=== PATIENT | female | born 2000 | race Caucasian/White ===

== ENCOUNTER 2021-07-15 19:29 | Outpatient (CLI) | payer OTHER ==
--- NOTE | 2021-07-15 20:43 | Ultrasound Report ---
PROCEDURE: OB First Trimester w/TV INDICATIONS: SCREENING OUTSIDE/PRIOR DATING DATA: Last menstrual period (LMP): 04/26/2021. LMP-based estimated date of delivery (WILTON): 02/01/2020. First dating scan (date and location): 07/15/2021. Estimated date of delivery (WIL[facility]) from first dating scan: 01/30/2022. TECHNIQUE: Real-time scanning was performed of the fetus and maternal pelvic organs, with image documentation. Endovaginal scanning was also performed to better visualize the fetus and maternal ovaries. COMPARISON: None FINDINGS: Embryo: Single living intrauterine gestation is present with a heart rate of 167 bpm. Leonard-ru mp length is 50 mm, corresponding to a 10 week 5 day gestation. Measurement variability in dating: +/- 4 weeks by LMP, +/- 7 days by mean sac diameter (use before 6 weeks gestation if crown-rump length not able to be measured), +/- 5 days by crown-rump length (6-12 weeks gestation). Maternal organs: Right ovarian corpus luteal cyst is present. IMPRESSION: Single living intrauterine gestation. Reviewed by: Maryse Eastman MD on 07/15/2021 8:42 PM PST Approved by: Maryse Eastman MD on 07/15/2021 8:42 PM PST Station ID: [id number]
== END 2021-07-15 19:30 | disposition home or self-care (01) ==
LOC: DI 19:29
PROVIDERS: ATTEND Nurse Practitioner Obstetrics & Gynecology
DX: Z36.89 Encounter for other specified antenatal screening (principal)

== ENCOUNTER 2021-07-31 17:09 | Outpatient (CLI) | payer OTHER ==
[2021-07-31 17:43] LABS: BASOPHILS # (AUTO) 0.1 10^3/uL (0.0-0.1); BASOPHILS % (AUTO) 0.8 %; EOSINOPHILS # (AUTO) 0.1 10^3/uL (0.0-0.7); HCT - HEMATOCRIT 38.3 % (37.0-47.0); HGB - HEMOGLOBIN 13.2 g/dL (12.0-16.0); LYMPHOCYTES # (AUTO) 1.8 10^3/uL (1.5-3.5); LYMPHOCYTES % (AUTO) 16.6 %; MEAN CORPUSCULAR HEMOGLOBIN 30.7 pg (27.0-31.0); MEAN CORPUSCULAR HGB CONC 34.5 g/dL (32.0-36.0); MEAN CORPUSCULAR VOLUME 89.1 fL (81.0-99.0); MEAN PLATELET VOLUME 13.1 fL (7.9-10.8); MONOCYTES # (AUTO) 0.5 10^3/uL (0.0-1.0); MONOCYTES % (AUTO) 4.8 %; NEUTROPHILS # (AUTO) 8.1 10^3/uL (1.5-6.6); PLT - PLATELET COUNT 214 10^3/uL (130-450); RED CELL DISTRIBUTION WIDTH 13.2 % (12.0-15.0); WHITE BLOOD COUNT 10.6 x10^3/uL (4.8-10.8)
[2021-08-01 09:36] LABS: HEPATITIS B SURFACE ANTIGEN NON-REACTIVE (NON-REACTIVE); HEPATITIS C ANTIBODY NON-REACTIVE (NON-REACTIVE)
[2021-08-01 13:21] LABS: HIV AG/AB 4TH GEN NON-REACTIVE (NON-REACTIVE)
== END 2021-07-31 17:10 | disposition home or self-care (01) ==
LOC: LAB 17:09
PROVIDERS: ATTEND Nurse Practitioner Obstetrics & Gynecology
DX: Z36.89 Encounter for other specified antenatal screening (principal)
CPT/HCPCS: 36415; 85025; 86592; 86762; 86787; 86803; 86850; 86900; 86901; 87340; 87389

== ENCOUNTER 2021-09-11 16:48 | Outpatient (CLI) | payer OTHER ==
[2021-09-16 08:43] LABS: AFP MOM 0.77; AGE RISK DOWN SYNDROME 1 IN 1141; CALC'D GESTATIONAL AGE 19.7 weeks; CIGARETTE SMOKER? NOT GIVEN; DONOR AGE: EGG RETRIEVAL NOT GIVEN; DONOR EGG NO; ESTRIOL MOM 1.32; HCG MOM 1.41; HX OF NEURAL TUBE DEFECTS NO; INHIBIN A MOM 0.83; INSULIN DEPEND DIABETIC NO; MATERNAL WEIGHT 166 lbs; MSS DOWN SYNDROME RISK <1 IN 5000; MSS3 TRISOMY 18 RISK <1 IN 5000; NUMBER OF FETUSES 1; PREV PREGNANCY DOWN SYND NO; RISK FOR ONTD <1 IN 5000
== END 2021-09-11 16:49 | disposition home or self-care (01) ==
LOC: LAB 16:48
PROVIDERS: ATTEND Nurse Practitioner Obstetrics & Gynecology
DX: Z34.00 Encounter for supervision of normal first pregnancy, unspecified trimester (principal); Z36.8A Encounter for antenatal screening for other genetic defects
CPT/HCPCS: 36415; 81511

== ENCOUNTER 2021-09-13 16:18 | Outpatient (CLI) | payer OTHER ==
--- NOTE | 2021-09-13 20:47 | Ultrasound Report ---
PROCEDURE: OB Detailed Eval INDICATIONS: SUPERVISION OF NORMAL OUTSIDE/PRIOR DATING DATA: Last menstrual period (LMP): 04/26/2021. LMP-based estimated date of delivery (WIL[facility]): 01/31/2022. First dating scan (date and location): 07/15/2021. Estimated date of delivery (WIL[facility]) from first dating scan: 01/30/2022. The below data below was generated using the ultrasound WILTON of 01/30/2022 TECHNIQUE: Real-time scanning was performed of the fetus, with image documentation and biometric measurements. Endovaginal scanning: Not performed. COMPARISON: None. FINDINGS: General: A single living intrauterine gestation is present. Presentation: Stable Placenta: Placental position is posterior, without previa. Amniotic fluid index: 15.3 cm, normal for gestational age. Deepest single vertical fluid pocket: 4.4 cm. heart rate: 157 beats per minute. Maternal cervical canal: 3.2 cm long; normal length is 2.5 cm or more. biometrics: Biparietal diameter: 4.5 cm, 19 weeks 5 days Head circumference: 17.3 cm, 19 weeks 6 days Abdominal circumference: 15.4 cm, 20 weeks 4 days Femur length: 3.12 cm, 19 weeks 5 days Estimated gestational age from initial scan: 20 weeks 1 day Composite gestational age from present scan: 20 weeks 0 days Estimated weight and percentile: 334 g, 44th percentile Measurement variability in biometric dating: +/- 10 days from 12-20 weeks gestation, +/- 2 weeks from 20-30 weeks gestation, +/- 3 weeks at 30 weeks gestation or later. Anatomic survey: Neuro: Ventricles are normal at less than 10 mm. Cisterna magna is normal at 3-11 mm. Cerebellum i s normal in size and morphology. Nuchal skin fold: Normal at less than 6 mm between 14 and 20 weeks gestational age. Face: Nose and lips, facial profile are normal. Spine: No evidence for spina bifida. Heart: 4-chambered heart is present, with normal ventricular outflow tracts. Diaphragm: Diaphragm is intact. Stomach: Left-sided stomach is present. Kidneys: No hydronephrosis. Normal is less than 5 mm in 2nd trimester, less than 7 mm in 3rd trimester. Cord: 3 vessel cord has orthotopic insertion. Bladder: Normal in size. Extremities: All 4 extremities are visualized. IMPRESSION: 1.Single live intrauterine with appropriate interval growth. 2.Estimated weight is 334 g, 44th percentile. 3. anatomic survey within normal limits. Reviewed by: Lorenzo Campos MD on 09/13/2021 8:45 PM PST Approved by: Lorenzo Campos MD on 09/13/2021 8:45 PM PST Station ID: [id number]
== END 2021-09-13 16:19 | disposition home or self-care (01) ==
LOC: DI 16:18
PROVIDERS: ATTEND Nurse Practitioner Obstetrics & Gynecology
DX: Z34.02 Encounter for supervision of normal first pregnancy, second trimester (principal); Z36.8A Encounter for antenatal screening for other genetic defects

== ENCOUNTER 2021-11-06 02:45 | Outpatient (CLI) | payer OTHER ==
[2021-11-06 03:34] VITALS: BP 128/63
--- NOTE | 2021-11-15 20:07 | PROVIDER PROGRESS NOTE ---
- HPI Chief Complaint: GI symptoms Current : Current EDU 01/30/22 Gestation 27 Weeks and 6 Days 1 Para 0 Vital Signs Temperature 36.7 C 11/06/21 03:10 Heart Rate 111 H 11/06/21 03:10 Respiratory Rate 20 11/06/21 03:10 Blood Pressure 128/63 11/06/21 03:10 Temperature 36.7 C 11/06/21 04:00 Heart Rate 110 H 11/06/21 04:00 Respiratory Rate 18 11/06/21 04:00 Blood Pressure 128/63 11/06/21 04:00 O2 Saturation - Procedures OB Procedure Performed: NST Diagnosis/Indication for NST: Other NST Procedure: NST Procedure Start Date 11/06/21 Start Time 03:18 Stop Time 03:55 Vibroacoustic Stimulation Used No Patient States Movement Yes: less than usual since illness began yesterday - Plan Plan: S: La presents to [facility] with c/o nausea and vomiting. She state she became nervous about being sick while and after vomiting several times. She denies dizziness or lightheadedness. She denies vaginal bleeding or leakage of fluid. She denies contractions. She reports +FM but she feels like the frequency of movements have decreased since she started vomiting. She states she began to feel better on the drive over but her was worried as he has recently had a stomach virus. O: NST performed 11/06/2021 NST read 11/07/2021 NST reactive. FHR baseline 150s, moderate variability, + accels, no decels No contractions appreciated via tocometry Vital signs WNL. A: 21yo @ 27.1wks gestation Nausea and vomiting P: Pt feels better after reactive NST. Reports decreased nausea. Encouraged increased fluid intake and addition of electrolytes and rest. Pt released home with precautions. Pt verbalized understanding and agrees to above plan. FINAL DIAGNOSIS: Nausea in
== END 2021-11-06 04:05 | disposition home or self-care (01) ==
LOC: WFO 02:45 → FBP 02:48 → WFO 04:05
PROVIDERS: ATTEND Naturopath
DX: O21.9 Vomiting of pregnancy, unspecified (principal); Z3A.27 27 weeks gestation of pregnancy
CPT/HCPCS: 59025; 99214

== ENCOUNTER 2021-11-11 16:30 | Outpatient (CLI) | payer OTHER ==
[2021-11-11 20:46] LABS: HCT - HEMATOCRIT 36.5 % (37.0-47.0); MEAN CORPUSCULAR HGB CONC 32.9 g/dL (32.0-36.0); MEAN CORPUSCULAR VOLUME 88.2 fL (81.0-99.0); MEAN PLATELET VOLUME 13.7 fL (7.9-10.8); RED BLOOD COUNT 4.14 10^6/uL (4.20-5.40); WHITE BLOOD COUNT 9.8 x10^3/uL (4.8-10.8)
== END 2021-11-11 16:31 | disposition home or self-care (01) ==
LOC: LAB.N 16:30
PROVIDERS: ATTEND Nurse Practitioner Obstetrics & Gynecology
DX: Z36.9 Encounter for antenatal screening, unspecified (principal)
CPT/HCPCS: 36415; 82950; 85027

== ENCOUNTER 2022-02-07 01:18 | Inpatient (IN) | payer OTHER ==
[2022-02-07] MEDS ORDERED: TRANEXAMIC ACID IN NACL 1,000 MG/100 ML BAG IV PRN (02:43)
[2022-02-07] MEDS ORDERED: LABETALOL 20 MG/4 ML SYRINGE IVP PRN ×3 (02:43)
[2022-02-07] MEDS ORDERED: hydrALAZINE INJ 20 MG/ML VIAL IVP PRN ×2 (02:43)
[2022-02-07] MEDS ORDERED: LIDOCAINE-MPF 1% 30 ML VIAL ID PRN (02:43)
[2022-02-07] MEDS ORDERED: CARBOPROST TROMETHAMINE 250 MCG/ML AMP IM PRN (02:43)
[2022-02-07] MEDS ORDERED: OXYTOCIN/SODIUM CHLORIDE 500 ML IV PRN ×2 (02:43→23:37)
[2022-02-07] MEDS ORDERED: miSOPROStoL 200 MCG TABLET PR PRN (02:43)
[2022-02-07] MEDS ORDERED: miSOPROStoL 200 MCG TABLET BC PRN (02:43)
[2022-02-07] MEDS ORDERED: fentaNYL 100 MCG/2 ML VIAL IVP PRN (02:43)
[2022-02-07] MEDS ORDERED: NIFEdipine 10 MG CAPSULE PO PRN (02:43)
[2022-02-07] MEDS ORDERED: OXYTOCIN 10 UNIT/ML VIAL IM PRN (02:43)
[2022-02-07] MEDS ORDERED: METHYLERGONOVINE 0.2 MG/ML VIAL IM PRN (02:43)
[2022-02-07] MEDS ORDERED: TERBUTALINE 1 MG/ML VIAL SUBQ PRN (02:43)
[2022-02-07] MEDS ORDERED: SODIUM CHLORIDE FLUSH 0.9% 10 ML SYRINGE IVP PRN ×2 (02:43→23:37)
--- NOTE | 2022-02-07 02:48 | HISTORY & PHYSICAL EXAMINATION ---
Admit History - Visit Reason Visit Reason: Contractions - : 1 Parity: 0 Premature: 0 Ectopic: 0 : 0 Care: positive: [facility] Risk/History: positive: None Complications This : positive: None Smoking Status: Never smoker - Mother's Labs Mother's Blood Type: positive: O Mother's RH: positive: Positive GBS: positive: Group B Step Negative Rubella Status: positive: Equivocal Meds/Allgy - Allergies Allergies/Adverse Reactions: Allergies Allergy/AdvReac Type Severity Reaction Status Date / Time No Known Allergies Allergy Unknown Verified 02/07/22 01:36 Review of Systems - Constitutional Constitutional: denies: Fatigue, Fever, Chills, Malaise - Eyes Eyes: denies: Blurred vision, Spots in vision, Dipolpia - Cardiovascular Cariovascular: denies: Irregular heart rate, Palpitations, Chest pain, Edema - Respiratory Respiratory: denies: Cough, Wheezing, SOB at rest - Gastrointestinal Gastrointestinal: denies: Constipation, Diarrhea, Nausea, Vomiting - Integumentary Integumentary: denies: Rash, Pruritis - Neurological Neurological: denies: Headache Physical - Abdominal Exam Vital Signs: Temp Pulse Resp BP Pulse Ox 37.0 C 96 18 130/72 02/07/22 01:30 02/07/22 01:30 02/07/22 01:30 02/07/22 01:30 Contraction Intensity: positive: Moderate to strong Uterine Resting Tone: positive: Soft - Monitoring Heart Rate Baseline: 140s Strip Review: positive: Category I - Presentation Presentation: positive: Vertex - Vaginal Exam Membranes: positive: Membranes intact Dilation (in cm): 5 Effacement (%): 90 - Speculum Exam Speculum Exam Performed: positive: No Plan for Labor - Plan For Labor I expect patient to be DC'd or transferred within 96 hours.: Yes Plan for Labor: HPI: This 21yo @ 41wks gestation by LMP c/w 10.5wks gestation who presents today with c/o contractions. She has experienced intermittent contractions for the past 48 hours however this evening at approximately 1800 she noticed they had increased in frequency and intensity. She denies vaginal bleeding or leakage of fluid. She reports +FM. Upon arrival she was noted to be 5/60/-2, midposition, soft and vertex with intact membranes. She has been a patient of [facility] since her transfer of care from [facility] at 24wks gestation. She has received consistent care through the duration of her which has remained uncomplicated. She is supported by her and her mom today. She will be admitted to [facility] for expectant management. Dating criteria: LMP: 04/26/2021 Initial U/S @ 10.5wks gestation c/w LMP dating Serial exams- agree OB Hx: G1: Current Medications: PNV Allergies: NKDA PMHx: Migraines Surgical Hx: None Social Hx: Never smoker. No ETOH or IVDA. Han is [employer]. Family Hx: Diabetes - MGM course: LMP 04/26/2021 Initial U/S @ 10.5wks gestation c/w LMP dating (WIL[place] by LMP 01/30/2022) O POS/ Rubella - equivocal - MMR VZV: non-immune Genetic screening - Quad screen negative FAS: WNL. Posterior placenta, no previa. 3VC. Size c/w dating. Glucola 93 Influenza vaccine: 06/27/2021 Tdap: 11/12/2021 GBS @ 37wks - NEG HSV: Denies in self and partner Physical Exam: Normocephalic, atraumatic Heart RRR w/o M/G/R Lungs CTAB Abdomen gravid, soft, nontender FHR baseline 150s, moderate variability, + accels, no decels Contractions palpate moderate every 2-3 minutes with soft resting tone SVE 5/60/-2, midposition and vertex. Membranes intact. Bilateral LE's trace edema. Mood is good. Assessment: 21yo @41.0wks gestation by LMP c/w 10.5wk U/S Active labor GBS NEGATIVE FHR Category I Plan: Admit to [facility] for expectant management. Intermittent monitoring. Encouraged ambulation and position changes. Jacuzzi PRN. Nitrous oxide PRN. Epidural per maternal request. Anticipate .
[2022-02-07 03:21] LABS: BASOPHILS # (AUTO) 0.1 10^3/uL (0.0-0.1); BASOPHILS % (AUTO) 0.5 %; EOSINOPHILS # (AUTO) 0.1 10^3/uL (0.0-0.7); EOSINOPHILS % (AUTO) 0.8 %; HCT - HEMATOCRIT 37.9 % (37.0-47.0); HGB - HEMOGLOBIN 12.2 g/dL (12.0-16.0); LYMPHOCYTES # (AUTO) 1.7 10^3/uL (1.5-3.5); LYMPHOCYTES % (AUTO) 14.7 %; MEAN CORPUSCULAR HEMOGLOBIN 26.9 pg (27.0-31.0); MEAN CORPUSCULAR HGB CONC 32.2 g/dL (32.0-36.0); MEAN CORPUSCULAR VOLUME 83.5 fL (81.0-99.0); MONOCYTES % (AUTO) 8.7 %; NEUTROPHILS # (AUTO) 8.6 10^3/uL (1.5-6.6); NEUTROPHILS % (AUTO) 74.8 %; NRBC ABSOLUTE COUNT (AUTO) 0.02 x10^3/uL; NUCLEATED RED BLOOD CELLS AUTO 0.2 /100WBC; PLT - PLATELET COUNT 162 10^3/uL (130-450); RED BLOOD COUNT 4.54 10^6/uL (4.20-5.40); RED CELL DISTRIBUTION WIDTH 16.7 % (12.0-15.0); WHITE BLOOD COUNT 11.5 x10^3/uL (4.8-10.8)
[2022-02-07] MEDS ORDERED: lidocaine 1% 20 ML MDV ID PRN (08:17)
--- NOTE | 2022-02-07 09:07 | PROVIDER PROGRESS NOTE ---
Labor Progress Note - Uterine Monitoring Uterine Monitoring Mode: positive: External toco Contraction Frequency (min/apart): 2-5 Contraction Intensity: positive: Strong - Monitoring Heart Rate Baseline: 130 Heart Rate Variability: positive: Moderate (6-25 bmp) Accelerations: positive: Present, 15x15 Decelerations: positive: None Strip Review: positive: Category I - Vaginal Exam Dilation (in cm): 7 Effacement (%): 100 Station: -2 Cervical Position: Midposition - Labor Progress Note Labor Progress Note/Additional Text: S: Breathing through contractions and coping well. Her mother and are supportive at the bedside. She states she is feeling tired but she has been able to close her eyes between contractions and get a tiny bit of rest. She states she feels she is doing well and denies questions or concerns at this time. O: FHR baseline 130s, moderate variability, + accels, no decels Contractions palpate strong every 2-5 minutes with soft resting tone SVE 7/100/-2, midposition, stretchy. Vertex. Bulging BOW A: 21yo @ 41.1wks gestation by LMP c/w 10wk U/S Postdates Active labor GBS neg FHR Category I P: Continue expectant management Intermittent monitoring Nitrous oxide PRN. Anticipate
--- NOTE | 2022-02-07 11:14 | PROVIDER PROGRESS NOTE ---
Labor Progress Note - Uterine Monitoring Uterine Monitoring Mode: positive: External toco Contraction Frequency (min/apart): 2-8 Contraction Intensity: positive: Strong Uterine Resting Tone: positive: Soft - Monitoring Monitor Mode: positive: External ultrasound Heart Rate Baseline: 125 Heart Rate Variability: positive: Moderate (6-25 bmp) Accelerations: positive: Present, 15x15 Decelerations: positive: None Strip Review: positive: Category I - Vaginal Exam Dilation (in cm): 8-9 Effacement (%): 100 Station: -1 Cervical Position: Anterior - Labor Progress Note Labor Progress Note/Additional Text: S: Breathing through contractions and coping very well. She is not feeling pressure at this time. Having some back pressure with contractions. Currently right side lying with peanut ball. Her and mom are supportive at the bedside. O: FHR baseline 130s, moderate variability, +accels, occasional early decelerations Contractions palpate firm every 2-8 minutes with soft resting tone SVE 8-9/100/-1, anterior. Vertex. Intact membranes. A: 21yo @ 41.1wks gestation by LMP Active labor GBS neg FHR Category I P: Continue expectant management Encouraged position changes in bed on peanut ball. Nitrous oxide PRN. Epidural per maternal request. Anticipate
--- NOTE | 2022-02-07 13:17 | PROVIDER PROGRESS NOTE ---
Labor Progress Note - Uterine Monitoring Uterine Monitoring Mode: positive: External toco Contraction Frequency (min/apart): 2-6 Contraction Intensity: positive: Strong Uterine Resting Tone: positive: Soft - Monitoring Monitor Mode: positive: External ultrasound Heart Rate Baseline: 130 Heart Rate Variability: positive: Moderate (6-25 bmp) Accelerations: positive: Present, 15x15 Decelerations: positive: Early Strip Review: positive: Category I - Vaginal Exam Dilation (in cm): 8 Effacement (%): 100 Station: -1 Cervical Position: Posterior - Labor Progress Note Labor Progress Note/Additional Text: S: Breathing through contractions. She is feeling very tired but overall is coping very well. and mom are supportive at the bedside. O: FHR baseline 130s, moderate variability, + accels, no decels Contractions palpate firm every 2-6 minutes with soft resting tone SVE 8/100/-1, anterior. Vertex. AROM @ 1306 was noted to be a small amount of clear fluid A: 21yo @ 41.1wks gestation by LMP Active labor Postdates GBS neg FHR Category I P: Continue expectant management. Encouraged ambulation and position changes. Anticipate .
[2022-02-07] MEDS ORDERED: LACTATED RINGERS 1,000 ML ONE (18:10)
--- NOTE | 2022-02-07 20:35 | PROVIDER PROGRESS NOTE ---
Labor Progress Note - Uterine Monitoring Uterine Monitoring Mode: positive: External toco : 2-3 Contraction Intensity: positive: Strong Uterine Resting Tone: positive: Soft - Monitoring Monitor Mode: positive: External ultrasound Heart Rate Baseline: 145 Heart Rate Variability: positive: Moderate (6-25 bmp) Accelerations: positive: Present, 15x15 Decelerations: positive: Early, Late, Variable, Intermittent (<50% x20 min) Strip Review: positive: Category II - Vaginal Exam Dilation (in cm): 10 Effacement (%): 100 Station: 1 - Labor Progress Note Labor Progress Note/Additional Text: S: Patient pushing in hands and knees. Continues to cope well with her contractions. Her mom and are supportive at the bedside. O: SVE c/c/+1 with moderate amount of caput noted. Pushing effort adequate and she continues to make slow progress FHR baseline 145, moderate variability, + accels. Occasional late decelerations, occasional early decelerations and occasional variable decelerations. Overall heart tones are reassuring. Moderate meconium noted now and was not present previously A: 21yo @ 41.1wks gestation by LMP Postdates gestation Active labor FHR Category II GBS neg P: Continue expectant management. Encouraged position changes in bed as tolerated. Continuous monitoring. Anticipate
[2022-02-07] MEDS ORDERED: diphenhydrAMINE INJ 50 MG/ML VIAL ONE (21:07)
--- NOTE | 2022-02-07 21:58 | CONSULTATION NOTE ---
Surgery Consult - Admit Date Hospital Admission Date: 02/07/22 - Consult Date Consult Date: 02/07/22 Requesting Provider: CHIKA Mckeon - Chief Complaint Chief Complaint: Failure to descend - Home Meds/Allergies Allergies/Adverse Reactions: Allergies Allergy/AdvReac Type Severity Reaction Status Date / Time No Known Allergies Allergy Unknown Verified 02/07/22 01:36 - Vital Signs Vital Signs: Last Vital Signs Temp 97.9 F 02/07/22 08:19 Pulse 80 02/07/22 08:19 Resp 18 02/07/22 08:19 BP 131/74 H 02/07/22 08:19 Pulse Ox 97 02/07/22 08:19 Intake & Output: Intake & Output 02/04/22 02/05/22 02/06/22 02/07/22 23:59 23:59 23:59 23:59 Output Total 1 Balance -1 - Lab Results Result Diagrams: 02/07/22 02:30 - Consultation Note Consultation Note: Patient is a 21-year-old G1, P0 at 41 weeks gestation by LMP consistent with 10- week ultrasound. She has made slow progression throughout the day and became complete and has been pushing for over 2 hours but fetus remains at 0 or +1 station. Too high for a vacuum to be performed safely. I was consulted to assess the situation OB history G1, P0 1. Current Past medical history Migraines Past surgical history Denies Family history Maternal grandmother: Diabetes Social history Denies tobacco, alcohol, drugs Physical Constitutional: alert, oriented, appears tired, face swollen, pushing with contractions Cardiovascular: RRR. Respiratory: no respiratory distress. Abdomen: Gravid, nontender Psych: affect and mood appropriate, normal interaction, good eye contact. SVE: 10/100/0 FHT: 180 bpm baseline, minimal variability with periods of moderate, variable decelerations with pushing, category 2. Mounds: 1 to 2 minutes Assessment and plan 21-year-old at 41 weeks gestation with failure to descend 1. Failure to descend: -Too high for vacuum assisted vaginal delivery. - section was recommended. Risks, benefits and alternatives were discussed including but not limited to infection, bleeding that may require blood products or hysterectomy for life saving measures, injury to surrounding organs including but not limited to bowel, bladder, ureters, tubes and ovaries and/or the baby. Should injury occur it could require longer/additional surgery to repair. The patient stated understanding and desired to proceed. All questions were answered posed by patient. She agrees to proceed with section. -Plan for primary low-transverse section. 2 g Ancef, 500 mg azithromycin 2. 41 weeks gestation 3. tachycardia 4. Category 2 tracing
[2022-02-07] MEDS ORDERED: CEFAZOLIN SODIUM IN 0.9 % NACL 2 GM/50 ML BAG IV SCH (22:00)
[2022-02-07] MEDS ORDERED: AZITHROMYCIN INJ 500 MG in SODIUM CHLORIDE 0.9% 250 ML IV SCH (22:00)
[2022-02-07] MEDS ORDERED: diphenhydrAMINE INJ 50 MG/ML VIAL IVP ONE (22:00)
--- NOTE | 2022-02-07 22:00 | PROVIDER PROGRESS NOTE ---
Labor Progress Note - Labor Progress Note Labor Progress Note/Additional Text: S: Patient has experienced facial swelling secondary to significant pushing effort. 50mg Benadryl was administered with little improvement. Patient pushing effort beginning to decrease secondary to maternal exhaustion. and mother supportive at the bedside. O: FHR baseline 170s, minimal variability SVE c/c/+1 Moderate meconium A: 21yo @ 41.1wks gestation by LMP Postdates FHR Category II GBS neg Active labor P: Secondary to maternal exhaustion, malposition, tachycardia, and arrest of descent, correction warden physicial presence requested at the bedside to evaluate for the appropriateness of a vacuum assisted vaginal delivery vs delivery. Dr. Sandhu, correction warden physician, present at the bedside and care handed to physician now.
[2022-02-07] MEDS ORDERED: ceFAZolin 1 GM VIAL ONE (22:13)
[2022-02-07] MEDS ORDERED: fentaNYL 100 MCG/2 ML VIAL ONE (22:23)
[2022-02-07] MEDS ORDERED: miSOPROStoL 200 MCG TABLET ONE (22:39)
[2022-02-07] MEDS ORDERED: CARBOPROST TROMETHAMINE 250 MCG/ML AMP IM ONE (22:40)
[2022-02-07] MEDS ORDERED: METHYLERGONOVINE 0.2 MG/ML VIAL ONE (22:42)
[2022-02-07] MEDS: LACTATED RINGERS 1,000 ML IV SCH (23:00)
[2022-02-07] MEDS ORDERED: SIMETHICONE CHEW 80 MG TABLET PO PRN (23:37)
[2022-02-07] MEDS ORDERED: oxyCODONE 5 MG TABLET PO PRN (23:37)
[2022-02-07] MEDS ORDERED: ONDANSETRON ODT 4 MG TABLET TL PRN (23:37)
--- NOTE | 2022-02-07 23:42 | OPERATIVE REPORT ---
Operative Report - General Admit Date: 02/07/22 Procedure Date: 02/07/22 Planned Procedure: Primary low transverse section Pre-Op Diagnosis: 41 weeks gestation, failure to descend, category 2 tracing Procedure Performed: Low transverse section Post Op Diagnosis: 41 weeks gestation, failure to descend, category 2 tracing - Procedure Note Primary Surgeon: Paul Sandhu MD Secondary Surgeon: CHIKA Mckeon Anesthesia Provider: TARSHA Connell Anesthesia Technique: Spinal Pathology: None IV Fluids (mL): 1,100 Estimated Blood Loss (mL): 800 Urine Output (mL): 75 Complications: None - Other Other Information/Narrative: Patient was a 21-year-old at 41 weeks gestation who presented for labor, she progressed to complete and pushed for several hours, but did not descend past 0 to +1 station. Between contractions, head would rise into the pelvis. As she was getting exhausted and stopped making progress as well as a category 2 tracing with tachycardia, we discussed section. section was recommended. Risks, benefits and alternatives were di scussed including but not limited to infection, bleeding that may require blood products or hysterectomy for life saving measures, injury to surrounding organs including but not limited to bowel, bladder, ureters, tubes and ovaries and/or the baby. Should injury occur it could require longer/additional surgery to repair. The patient stated understanding and desired to proceed. All questions were answered posed by patient. Prior to being taken to the OR, two grams of cefazolin IV and 500 mg azithromycin were administered. The patient was taken to the operating room where regional anesthesia was found to be adequate. She was then prepared and draped in the usual sterile fashion in the dorsal supine position with a leftward tilt displacing the uterus. Orozco was draining to gravity. SCDs were on bilateral lower extremities. A pfannenstiel skin incision was then made with the scalpel and carried through to the underlying layer of fascia. The fascia was incised in the midline and the incision extended laterally with the Carolina scissors. The superior aspect of the facial incision was then grasped with the Parker clamps, elevated and the underlying rectus muscles dissected off sharply. Attention was then turned to the inferior aspect of this incision which in a similar fashion was grasped, elevated with the Parker clamps and the rectus muscle dissected off sharply. The rectus muscles were in the midline. The peritoneum identified, grasped with the pick-ups and entered sharply with the Metzenbaum scissors. The peritoneal incision was then extended superiorly and inferiorly with good visualization of the bladder. The bladder blade was inserted. The vesicouterine peritoneum was identified, grasped with the pick-ups, and entered sharply with Metzenbaum scissors. This incision was then extended laterally and the bladder flap created digitally. The bladder blade was reinserted. The lower uterine segment was identified and incised in a transverse fashion with the scalpel. The uterine incision was then extended bluntly laterally. Artificial rupture of membranes demonstrated moderate meconium stained fluid. The bladder blade was removed. The fetus was in a cephalic presentation. The infants head delivered atraumatically. The anterior shoulders were delivered followed by the posterior shoulders then the remainder of the body. The infants mouth and nose were bulb suctioned. The umbilical cord was clamped times two and cut. The infant was handed to the pediatric team. Cord blood gases were obtained. The placenta was removed with gentle traction. 20 units of oxytocin were added to IVF and allowed to run freely. The uterus was exteriorized and cleared of all clots and debris. The uterine incision was inspected and found to be without any extensions and was repaired with 0 Vicryl in a running, locked fashion. A second imbricating layer was performed. Upon inspection, the repaired hysterotomy was found to be hemostatic. The uterus was firm and returned to the abdomen. The gutters were cleared of all clots and debris. The fascia was reapproximated with 0 Vicryl in a running fashion. The subcutaneous tissue was closed with 2-0 Vicryl. The skin was closed in a subcuticular fashion with 4-0 Monocryl. The patient tolerated the procedure well. Sponge, lap and needle counts were correct times three. The patient was taken to the recovery room in stable condition. weight is pending at this time. I appreciate the assistance of CHIKA Mckeon during this procedure, and her assistance in retraction, visualization, dissection, and overall assistance during the case were instrumental to the patient's wellbeing.
[2022-02-07] MEDS ORDERED: KETOROLAC 30 MG/ML VIAL IVP SCH (23:45)
--- NOTE | 2022-02-08 00:26 | ANESTHESIA ---
Pre-Anesthesia VS, & Labs - Diagnosis failure to descend - Procedure urgent C/S Vital Signs: Temp Pulse Resp BP Pulse Ox 36.6 C 80 18 131/74 H 97 02/07/22 08:19 02/07/22 08:19 02/07/22 08:19 02/07/22 08:19 02/07/22 08:19 Height: 5 ft 1 in Weight (kg): 87.543 kg Body Mass Index: 36.4 BMI Classification: Obese - NPO Other (liquids <8Hrs) - Is Patient ?: Yes - Lab Results Current Lab Results: Laboratory Tests 02/07/22 02:30: WBC 11.5 H, RBC 4.54, Hgb 12.2, Hct 37.9, MCV 83.5, MCH 26.9 L, MCHC 32.2, RDW 16.7 H, Plt Count 162, Neut # (Auto) 8.6 H, Lymph # (Auto) 1.7, [place] # (Auto) 1.0, Eos # (Auto) 0.1, Baso # (Auto) 0.1, Absolute Nucleated RBC 0.02, Nucleated RBC % 0.2 02/07/22 02:30: Blood Type O POSITIVE, Antibody Screen NEGATIVE Fish Bones: 02/07/22 02:30 Home Medications and Allergies Active Medications Acetaminophen (Acetaminophen 500 Mg Tablet) 1,000 mg PO Q8H LANA Carboprost Tromethamine (Carboprost Tromethamine 250 Mcg/Ml Amp) 250 mcg IM .ONCE PRN PRN Reason: Hemorrhage Docusate Sodium (Docusate Sodium 100 Mg Capsule) 100 mg PO BID LANA Fentanyl (Fentanyl 100 Mcg/2 Ml Vial) 50 mcg IVP Q1H PRN PRN Reason: Severe Pain (score 7-10) Hydralazine HCl (Hydralazine Inj 20 Mg/Ml Vial) 5 - 10 mg IVP Q20M PRN; Protocol PRN Reason: SBP> or= 160 OR DBP> or= 110 Hydralazine HCl (Hydralazine Inj 20 Mg/Ml Vial) 10 mg IVP .ONCE PRN; Protocol PRN Reason: SBP> or= 160 OR DBP> or= 110 Oxytocin/Sodium Chloride (Pitocin/Sodium Chloride) 500 mls @ 999 mls/hr IV PRN PRN; Protocol PRN Reason: POST- HEMORR PREVENTION Tranexamic Acid (Tranexamic 1,000 Mg/100ml-Nacl) 1,000 mg in 100 mls @ 600 mls/hr IV Q30M PRN PRN Reason: EBL >1200mL and within 3hr Cefazolin/Sodium Chloride (Ancef 2 Grams/50ml) 2 gm in 50 mls @ 100 mls/hr IV ONCE LANA Stop: 02/08/22 21:59 Azithromycin 500 mg/ Sodium (Chloride) 250 mls @ 250 mls/hr IV ONCE LANA Stop: 02/08/22 21:59 Lactated Ringer's (Lr) 1,000 mls @ 100 mls/hr IV .Q10H LANA Oxytocin/Sodium Chloride (Pitocin/Sodium Chloride) 500 mls @ 999 mls/hr IV PRN PRN; Protocol PRN Reason: POST- HEMORR PREVENTION Ibuprofen (Ibuprofen 600 Mg Tablet) 600 mg PO Q6H LANA Ketorolac Tromethamine (Ketorolac 30 Mg/Ml Vial) 30 mg IVP Q6H LANA Stop: 02/08/22 17:46 Labetalol HCl (Labetalol 20 Mg/4 Ml Syringe) 20 - 80 mg IVP Q10M PRN; Protocol PRN Reason: SBP> or= 160 OR DBP> or= 110 Labetalol HCl (Labetalol 20 Mg/4 Ml Syringe) 20 mg IVP .ONCE PRN; Protocol PRN Reason: SBP> or= 160 OR DBP> or= 110 Labetalol HCl (Labetalol 20 Mg/4 Ml Syringe) 20 - 40 mg IVP Q10M PRN; Protocol PRN Reason: SBP> or= 160 OR DBP> or= 110 Lidocaine HCl (Lidocaine 1% 20 Ml Mdv) 20 ml ID .ONCE PRN PRN Reason: PERINEAL REPAIR Methylergonovine Maleate (Methylergonovine 0.2 Mg/Ml Vial) 0.2 mg IM .ONCE PRN PRN Reason: Hemorrhage Misoprostol (Misoprostol 200 Mcg Tablet) 600 mcg BC .ONCE PRN PRN Reason: Hemorrhage Misoprostol (Misoprostol 200 Mcg Tablet) 800 mcg OR .ONCE PRN PRN Reason: Hemorrhage Nifedipine (Nifedipine 10 Mg Capsule) 10 - 20 mg PO Q20M PRN; Protocol PRN Reason: SBP> or= 160 OR DBP> or= 110 Ondansetron HCl (Ondansetron Odt 4 Mg Tablet) 4 mg TL Q4H PRN PRN Reason: Nausea / Vomiting Oxycodone HCl (Oxycodone 5 Mg Tablet) 5 mg PO Q4HR PRN PRN Reason: PAIN Oxytocin (Oxytocin 10 Unit/Ml Vial) 10 unit IM .ONCE PRN PRN Reason: Step One if no IV access. Simethicone (Simethicone Chew 80 Mg Tablet) 80 mg PO TID PRN PRN Reason: Gas Sodium Chloride (Sodium Chloride Flush 0.9% 10 Ml Syringe) 10 ml IVP PRN PRN PRN Reason: NEEDED PER PROVIDER ORDERS Sodium Chloride (Sodium Chloride Flush 0.9% 10 Ml Syringe) 10 ml IVP Q8H LANA Sodium Chloride (Sodium Chloride Flush 0.9% 10 Ml Syringe) 10 ml IVP 0100,0900,1700 LANA Sodium Chloride (Sodium Chloride Flush 0.9% 10 Ml Syringe) 10 ml IVP PRN PRN PRN Reason: NEEDED PER PROVIDER ORDERS Terbutaline Sulfate (Terbutaline 1 Mg/Ml Vial) 0.25 mg SUBQ .ONCE PRN PRN Reason: Tachystole Allergies/Adverse Reactions: Allergies Allergy/AdvReac Type Severity Reaction Status Date / Time No Known Allergies Allergy Unknown Verified 02/07/22 01:36 Anes History & Medical History - Anesthetic History Anesthesia Complications: reports: No previous complications Family history of Anesthesia Complications: Denies Family history of Malignant Hyperthermia: Denies - Medical History Cardiovascular: reports: None Pulmonary: reports: None Neuro: reports: Migraines Smoking Status: Never smoker - Obstetrical History : 1 Parity: 0 Events: reports: None Complications: reports: None Exam General: Oriented x3, Cooperative, Mild distress, Other (pt exhausted, minimal verbal communication secondary to exhaustion) Dental: WNL (large amount of facial swelling. Pt cannot open eyes due to swelling.) Mouth Openin Fingerbreadth Neck Mobility: Normal Mallampati classification: III Thyromental Distance: less than 4 cm Respiratory: Lungs clear Cardiovascular: Regular rate Plan Anesthesia Type: Spinal Consent for Procedure(s) Verified and Reviewed: Yes Code Status: Attempt Resuscitation ASA classification: 2-Mild systemic disease Is this case an emergency?: Yes
[2022-02-08] MEDS ORDERED: SODIUM CHLORIDE FLUSH 0.9% 10 ML SYRINGE IVP SCH (01:00)
[2022-02-08] MEDS: ACETAMINOPHEN 500 MG TABLET PO SCH ×3 (01:29→17:06)
--- NOTE | 2022-02-08 04:32 | ANESTHESIA POST OP EVALUATION ---
Anesthesia Post Eval - Post Anesthesia Eval Vitals: Last Vital Signs Temp 36.6 C 02/07/22 08:19 Pulse 80 02/07/22 08:19 Resp 18 02/07/22 08:19 BP 131/74 H 02/07/22 08:19 Pulse Ox 97 02/07/22 08:19 CV Function Including HR & BP: Stable Pain Control: Satisfactory Nausea & Vomiting: Negative Mental Status: Baseline Respiratory Status: Airway Patent Hydration Status: Satisfactory Anesthesia Complications: None
[2022-02-08] MEDS: KETOROLAC 30 MG/ML VIAL IVP SCH ×3 (05:45→19:39)
[2022-02-08 06:40] LABS: BASOPHILS % (AUTO) 0.2 %; EOSINOPHILS % (AUTO) 0.9 %; HCT - HEMATOCRIT 30.9 % (37.0-47.0); HGB - HEMOGLOBIN 10.3 g/dL (12.0-16.0); LYMPHOCYTES % (AUTO) 6.2 %; MEAN CORPUSCULAR HEMOGLOBIN 27.1 pg (27.0-31.0); MEAN CORPUSCULAR HGB CONC 33.3 g/dL (32.0-36.0); MEAN CORPUSCULAR VOLUME 81.3 fL (81.0-99.0); MONOCYTES % (AUTO) 9.5 %; NEUTROPHILS % (AUTO) 82.7 %; PLT - PLATELET COUNT 149 10^3/uL (130-450); RED CELL DISTRIBUTION WIDTH 16.7 % (12.0-15.0); WHITE BLOOD COUNT 18.7 x10^3/uL (4.8-10.8)
[2022-02-08 06:42] LABS: ABNORMAL LYMPHS % (MANUAL) 0 %
--- NOTE | 2022-02-08 06:43 | PROVIDER PROGRESS NOTE ---
Subjective - Prog Note Date Prog Note Date: 02/08/22 - Subjective Subjective: Subjective Patient reports she is doing well. Lochia appropriate. Denies heavy bleeding. Ambulating. Pelvic and abdominal pain well-controlled. Tolerating oral intake. Diet: Regular. Voiding without difficulty. Passing flatus. Denies BM. Patient is bonding with baby in room Breast feeding going well. Denies feeling lightheaded, dizzy or excessively fatigued. Objective General: Alert, oriented, no apparent distress. Head: Still significantly swollen. Cardiovascular: Regular rate. Regular rhythm. Lungs: No increased work of breathing. Abdomen: Uterus firm. Below umbilicus. No guarding or rebound. Incision: Bandage in place. Assessment and Plan day 1. -Routine care -Anticipate discharge in 1 to 2 days Status post primary low-transverse section -Plan to remove bandage later today. -Orozco out this AM and encourage ambulation Facial edema: -Likely from pushing. Mostly localized to face. Objective - Vital Signs/Intake & Output Intake & Output: Intake & Output 02/05/22 02/06/22 02/07/22 02/08/22 23:59 23:59 23:59 23:59 Intake Total 1617 Output Total 251 790 Balance -251 827 - Lab Results Fish Bones: 02/08/22 06:33 Other Labs: Lab Results x24hrs 02/08/22 Range/Units 06:33 WBC 18.7 H (4.8-10.8) x10^3/uL RBC 3.80 L (4.20-5.40) 10^6/uL Hgb 10.3 L (12.0-16.0) g/dL Hct 30.9 L (37.0-47.0) % MCV 81.3 (81.0-99.0) fL MCH 27.1 (27.0-31.0) pg MCHC 33.3 (32.0-36.0) g/dL RDW 16.7 H (12.0-15.0) % Plt Count 149 (130-450) 10^3/uL
[2022-02-08 06:57] LABS: BAND NEUTROPHILS % (MANUAL) 10 %; DIFFERENTIAL COMMENT MANUAL DIFFERENTIAL; LYMPHOCYTES # (MANUAL) 1.7 10^3/uL (1.5-3.5); LYMPHOCYTES % (MANUAL) 9 %; MONOCYTES # (MANUAL) 0.4 10^3/uL (0.0-1.0); NEUTROPHILS # (MANUAL) 16.6 10^3/uL (1.5-6.6); PLATELET ESTIMATE, MANUAL NORMAL (130-450,000) (NORMAL); RBC MORPHOLOGY (MULTIPLE) NORMAL APPEARANCE (NORMAL)
[2022-02-08] MEDS: DOCUSATE SODIUM 100 MG CAPSULE PO SCH ×2 (09:22→21:03)
[2022-02-08] MEDS: LACTATED RINGERS 1,000 ML IV SCH (10:06)
[2022-02-08] MEDS: SODIUM CHLORIDE FLUSH 0.9% 10 ML SYRINGE IVP SCH (19:40)
[2022-02-09] MEDS: ACETAMINOPHEN 500 MG TABLET PO SCH ×3 (01:02→17:00)
[2022-02-09] MEDS: IBUPROFEN 600 MG TABLET PO SCH ×4 (01:03→18:57)
[2022-02-09] MEDS: SODIUM CHLORIDE FLUSH 0.9% 10 ML SYRINGE IVP SCH (04:41)
[2022-02-09] MEDS: DOCUSATE SODIUM 100 MG CAPSULE PO SCH (08:48)
--- NOTE | 2022-02-09 11:13 | PROVIDER PROGRESS NOTE ---
Subjective - Prog Note Date Prog Note Date: 02/09/22 - Subjective Pt reports feeling: Improved Subjective: Subjective Patient reports she is doing well. Lochia appropriate. Denies heavy bleeding. Ambulating. Pelvic and abdominal pain well-controlled. Tolerating oral intake. Diet: Regular. Voiding without difficulty. Passing flatus. small BM Patient is bonding with baby Breast feeding going well. Denies feeling lightheaded, dizzy or excessively fatigued. Objective General: Alert, oriented, no apparent distress. Cardiovascular: Regular rate. Regular rhythm. Lungs: No increased work of breathing. Abdomen: Uterus firm. Below umbilicus. No guarding or rebound. Incision: Clean, dry, and intact. Bandage removed today Assessment and Plan day 1. -Routine care -Anticipate discharge tomorrow Facial edema -Mildly improved. Continue icing. Objective - Vital Signs/Intake & Output Vital Signs: Vital Signs x48h Temp Pulse Resp BP Pulse Ox 02/09/22 08:00 98.4 F 81 16 119/54 L 98 02/09/22 04:00 98.8 F 85 18 128/58 L 98 Intake & Output: Intake & Output 02/06/22 02/07/22 02/08/22 02/09/22 23:59 23:59 23:59 23:59 Intake Total 3542 500 Output Total 251 2161 400 Balance -251 1381 100 - Lab Results Fish Bones: 02/08/22 06:33
[2022-02-10] MEDS: ACETAMINOPHEN 500 MG TABLET PO SCH ×2 (00:53→08:59)
[2022-02-10] MEDS: IBUPROFEN 600 MG TABLET PO SCH ×3 (00:53→13:37)
[2022-02-10] MEDS: DOCUSATE SODIUM 100 MG CAPSULE PO SCH (08:59)
--- NOTE | 2022-02-10 11:02 | Discharge Plan ---
Discharge Plan Problem Reviewed?: Yes Disposition: Home, Self Care Condition: Good Shower Restrictions: No Driving Restrictions: Yes (For two week and while taking opioids) Instruction Topics: C Section Dc No Smoking: If you smoke, Please STOP! Call for help. Follow-up with: Paul Sandhu MD [Provider Admit Priv/Credential] -
--- NOTE | 2022-02-10 11:05 | DISCHARGE SUMMARY ---
Discharge Summary Admit Date: 02/07/22 Discharge Date: 02/10/22 Discharging Provider: Paul Sandhu MD Code Status: Attempt Resuscitation Condition at Discharge: Good Discharge Disposition: 01 Home, Self Care - DIAGNOSES Admission Diagnoses: 41 weeks gestation Term Labor Discharge Diagnoses with Status of Each Condition: Same Failure to descend Status post primary low-transverse section - HPI History of Present Illness: Subjective Patient reports she is doing well. Lochia appropriate. Denies heavy bleeding. Ambulating without dizziness. Pelvic and abdominal pain well-controlled. Tolerating oral intake. Diet: Regular. Voiding without difficulty. Passing flatus. Small BM yesterday. Patient is bonding with baby in room Breast feeding going well. Feels like milk came in more overnight Denies feeling lightheaded, dizzy or excessively fatigued. Objective General: Alert, oriented, no apparent distress. Cardiovascular: Regular rate. Regular rhythm. Lungs: No increased work of breathing. Abdomen: Uterus firm. Below umbilicus. No guarding or rebound. Incision: Clean, dry, and intact. - HOSPITAL COURSE Hospital Course: Patient is a 21-year-old G1 now P1 who presented at 41 weeks gestation in term labor. She presented at 5 cm dilation and was admitted for labor. Continue labor on her own until amniotomy was performed. She progressed to complete and began pushing. She had extended third stage of labor, and began having facial swelling from increased facial pressure while pushing. Physician was called by her rn clinical resource to assess for possible vacuum assistance or section. As she was still 0, possibly +1 station, she was not a good candidate and head felt asynclitic. Patient was exhausted from pushing for so long, and section was recommended. Low-transverse section was performed without complication. Her course was similarly unremarkable. She was discharged on day 3. weight: 3601 g - ALLERGIES Allergies/Adverse Reactions: Allergies Allergy/AdvReac Type Severity Reaction Status Date / Time No Known Allergies Allergy Unknown Verified 02/07/22 01:36 - MEDICATIONS Home Medications: Ambulatory Orders Medication Instructions Recorded Confirmed Acetaminophen [Acetaminophen Extra 1,000 mg PO Q8H PRN #60 tablet 02/10/22 Strength] Docusate Sodium 100Mg Capsule 100 - 200 mg PO BID PRN #60 cap 02/10/22 [Colace 100Mg Capsule] Ibuprofen [Motrin] 600 mg PO Q6H PRN #30 tab 02/10/22 oxyCODONE [Roxicodone] 2.5 - 5 mg PO Q4H PRN #24 tablet 02/10/22 - LABS Result Diagrams: 02/08/22 06:33 - FOLLOW UP Follow Up: With Paul Sandhu MD in 1 week at [facility] - TIME SPENT Time Spent in Discharge (Minutes): 20
[2022-02-10 15:00] VITALS: BP 123/59
--- NOTE | 2022-02-10 19:07 | Labor Flowsheet ---
Labor Flowsheet Datetime Report Generated by CPN: 02/10/2022 19:07 Datetime: 02/08/2022 03:00 Stage of : Recovery VITAL SIGNS NBP Sys/Alyson/Mean (mmHg): 125 : 71 : 84 Pulse: 79 Respirations: 18 Temperature (C): 37.0 Temperature Route: Oral PAIN Pain Scale: 0 Pain Presence: None/Denies Pain Type: N/A Datetime: 02/08/2022 01:45 SpO2 (%): 100 Datetime: 02/08/2022 00:55 Pain Location: Other Datetime: 02/07/2022 22:05 Communication Comments: Left the room to go to OR 1 for delivery Datetime: 02/07/2022 22:00 UTERINE ACTIVITY Monitor Mode: External Quality: Moderate Resting Tone (Palpate): Relaxed ASSESSMENT A Monitor Mode: External US FHR Baseline Rate : 180 FHR Baseline Changes: Tachycardia Variability: Minimal - Undetectable to <=5 bpm Accelerations: None Decelerations: Late; Prolonged Category: Category II Oxygen Method: Room Air LaborFlag: Labor Datetime: 02/07/2022 21:45 Frequency (min): 0.5 - 1 Duration (sec): 80 - 100 Comments: indeterminate Datetime: 02/07/2022 21:08 MEDICATIONS Medication Comments: Benadryl 50 mg IVP administered for facial swelling Datetime: 02/07/2022 21:00 Monitor Interventions for UA: [place] Adjusted Datetime: 02/07/2022 20:45 Contraction Comments: contraction pattern is indeterminate and has been re zeroed at this time Datetime: 02/07/2022 20:38 Amniotic Fluid Color: Heavy Meconium Datetime: 02/07/2022 19:00 Pattern: Normal: <= 5 Contractions in 10 Minutes VAGINAL EXAM Dilatation (cm): 10.0 Exam by: jen sixto cnm STAGE 2 Pushing: Coached on Pushing Pushing Position: Pushing with Contractions Datetime: 02/07/2022 18:43 Effacement (%): 100 Station: -1 COMMUNICATION Communication: Provider at Bedside Provider Notified (Name): A.Sixto, CNM Datetime: 02/07/2022 18:30 Monitor Interventions for FHR: Ultrasound Adjusted Datetime: 02/07/2022 18:29 Patient Position/Activity: Standing Patient Care Comments: at bedside Datetime: 02/07/2022 17:45 PATIENT CARE IV/Blood Work: IV Started Datetime: 02/07/2022 17:09 Provider Reviewed Strip: Yes Datetime: 02/07/2022 15:36 Pain Relief Measures: Comfort Measures Pain Coping: Breathing Through Contractions Comfort Measures: Breathing/Relaxation; Family Support Datetime: 02/07/2022 14:16 Stage 2 Comments: feeling some pressure with contractions Datetime: 02/07/2022 13:07 Membranes Rupture Method: Artificial Amniotic Fluid Amount: Scant Datetime: 02/07/2022 13:03 Vaginal Exam Comments: CNM at bedside, pt would like AROM Datetime: 02/07/2022 11:15 MATERNAL ASSESSMENT Level of Consciousness: Alert Headache: Denies Breath Sounds, Left: Clear and Equal Breath Sounds, Right: Clear and Equal Nausea/Vomiting: Denies RUQ Epigastric Pain: Denies Datetime: 02/07/2022 10:20 Cervix, Consistency: Soft Datetime: 02/07/2022 08:05 Actions for Decelerations: Hands and Knees; Other Datetime: 02/07/2022 07:00 Membrane Status: Intact Vaginal Bleeding: None Cervix, Position: Anterior MALLOY'S SCORE Dilatation (cm): 5 or greater cms Effacement: >80_ effaced Station: minus 1 to 0 Consistency: Soft Position: Anterior Total Malloy's Score: 12 : 9-14 = Usually no failure for induction
== END 2022-02-10 18:45 | disposition home or self-care (01) | DRG 788 ==
LOC: WFO 01:18 → FBP 01:20 → WFO 02:32 → FBP 02:37
PROVIDERS: ADMIT Nurse Practitioner Obstetrics & Gynecology; ATTEND Obstetrics & Gynecology
PROC: 10D00Z1 Extraction of Products of Conception, Low, Open Approach (ICD-10-PCS; principal; 2022-02-07 22:00)
DX: O75.81 Maternal exhaustion complicating labor and delivery (principal); O48.0 Post-term pregnancy; Z3A.41 41 weeks gestation of pregnancy; O76 Abnormality in fetal heart rate and rhythm complicating labor and delivery; Z37.0 Single live birth; O12.04 Gestational edema, complicating childbirth; O32.9XX0 Maternal care for malpresentation of fetus, unspecified, not applicable or unspecified; O62.1 Secondary uterine inertia
CPT/HCPCS: 36415; 59025; 85025; 86850; 86900; 86901; 99215; A9270; J0690; J1200; J7120; 80053